=== PATIENT | male | born 1965 | race Caucasian/White ===

== ENCOUNTER → 2016-12-25 | Outpatient (CLI) | payer BC ==
[2016-12-25 13:37] LABS: Basophils % (A) 0 %; CH 30.1; CHCM 32.5; Eosinophils # (A) 0.3 k/uL (0-0.7); Eosinophils % (A) 6 %; HCT 47.6 % (39.0-53.0); HDW 2.52; HGB 15.8 gm/dL (13.0-17.5); Luc # (Auto) 0.11; Luc % (Auto) 2; Lymphocytes # (A) 1.4 k/uL (1.0-4.8); Lymphocytes % (A) 24 %; MCH 30.8 pg (25.0-35.0); MCHC 33.2 g/dL (31.0-37.0); MCV 92.8 fL (80.0-100.0); Mean Platelet Volume 7.1; Monocytes # (A) 0.3 k/uL (0-1.0); Monocytes % (A) 5 %; Neutrophils # (A) 3.5 k/uL (1.3-7.7); Neutrophils % (A) 63 %; RBC 5.12 m/uL (4.30-5.90); RDW 13.4 % (11.5-15.5); WBC 5.6 k/uL (3.8-10.6); WBC (Perox) 5.52
[2016-12-25 14:01] LABS: ALT 123 U/L (21-72); AST 93 U/L (17-59); Blood Urea Nitrogen 21 mg/dL (9-20); C Reactive Protein 19.3 mg/L (<10.0); Non-African American GFR(MDRD) >60 (>60 ml/min/1.73 sqM)
== END ==
LOC: LABWHC1 12:58
PROVIDERS: ATTEND Internal Medicine Rheumatology
DX: M06.4 Inflammatory polyarthropathy (principal); M15.0 Primary generalized (osteo)arthritis; M47.816 Spondylosis without myelopathy or radiculopathy, lumbar region; M45.5 Ankylosing spondylitis of thoracolumbar region; M25.551 Pain in right hip
CPT/HCPCS: 36415; 82040; 82565; 84450; 84460; 84520; 85025; 86140

== ENCOUNTER → 2017-01-28 | Outpatient (CLI) | payer BC ==
[2017-01-28 12:37] LABS: Basophils % (A) 0 %; CH 30.4; CHCM 33.2; Eosinophils # (A) 0.2 k/uL (0-0.7); Eosinophils % (A) 4 %; HCT 46.5 % (39.0-53.0); HDW 2.49; HGB 15.4 gm/dL (13.0-17.5); Luc # (Auto) 0.07; Luc % (Auto) 1; Lymphocytes # (A) 1.2 k/uL (1.0-4.8); Lymphocytes % (A) 22 %; MCH 30.5 pg (25.0-35.0); MCHC 33.2 g/dL (31.0-37.0); MCV 91.8 fL (80.0-100.0); Mean Platelet Volume 7.3; Monocytes # (A) 0.2 k/uL (0-1.0); Monocytes % (A) 3 %; Neutrophils # (A) 3.7 k/uL (1.3-7.7); Neutrophils % (A) 68 %; RBC 5.07 m/uL (4.30-5.90); RDW 13.3 % (11.5-15.5); WBC 5.5 k/uL (3.8-10.6); WBC (Perox) 5.43
[2017-01-28 12:48] LABS: ALT 115 U/L (21-72); AST 73 U/L (17-59); Blood Urea Nitrogen 18 mg/dL (9-20); Non-African American GFR(MDRD) >60 (>60 ml/min/1.73 sqM)
--- NOTE | 2017-01-28 14:34 | XR ---
Bilateral wrists HISTORY: Osteoarthritis, pain 4 views of each wrist submitted on a total of 8 images Correlation to bilateral hand same date Bone mineralization, joint spaces and alignment are maintained. IMPRESSION: Normal wrists.
--- NOTE | 2017-01-28 14:39 | XR ---
Bilateral hands HISTORY: Generalized osteoarthritis, pain 3 views of both hands are submitted on a total of 6 images. Bone mineralization and alignment are maintained. Small ossific density present at the intervertebral joint of the first digit of the right hand questionable clinical significance. Correlate for remote trauma. Some minimal marginal spurring present at the interphalangeal joints of the first digits, met acarpophalangeal joints of the first digits, distal interphalangeal joints of the second digits with some mild joint space loss. IMPRESSION: Mild osteoarthritic changes.
--- NOTE | 2017-01-28 14:56 | XR ---
Bilateral knees HISTORY: Pain, arthritis 3 views of both knees are submitted. No comparisons Bone mineralization, joint spaces and alignment are maintained. No evident joint effusion bilaterally . Enthesophytes present at the insertion of the quadriceps tendon and patellar tendon on the left and right. IMPRESSION: No significant joint space loss, marginal spurring evident to suggest osteoarthritis.
== END | disposition home or self-care (01) ==
LOC: LABWHC1 12:09
PROVIDERS: ATTEND Internal Medicine Rheumatology
DX: M19.041 Primary osteoarthritis, right hand (principal); M19.042 Primary osteoarthritis, left hand; M06.4 Inflammatory polyarthropathy; M47.816 Spondylosis without myelopathy or radiculopathy, lumbar region; M45.5 Ankylosing spondylitis of thoracolumbar region; M25.551 Pain in right hip
CPT/HCPCS: 36415; 82040; 82565; 84450; 84460; 84520; 85025; 86140